=== PATIENT | male | born 2000 | race Caucasian/White ===

== ENCOUNTER 2023-09-18 19:27 | Emergency (ER) | payer MEDICAID ==
[~2023-09-18] VITALS: Ht 170.2 cm; Wt 69.0 kg
[2023-09-18] MEDS ORDERED: PREDNISONE 20MG TABLET PO STA (19:58)
[2023-09-18] MEDS ORDERED: ALBUTEROL (0.083%) 2.5MG/3ML NEB ONE (21:51)
[2023-09-18] MEDS ORDERED: IPRATROPIUM BROMIDE (0.02%) 0.5MG/2.5ML NEB ONE (21:51)
[2023-09-18] MEDS: IPRATROPIUM BROMIDE (0.02%) 0.5MG/2.5ML NEB HHN STA (21:54)
[2023-09-18] MEDS: ALBUTEROL (0.083%) 2.5MG/3ML NEB HHN STA (21:54)
[2023-09-18 21:56] VITALS: PULSE 64; RESP 22; O2SAT 99
[2023-09-18 22:00] VITALS: BP 120/69; PULSE 79; RESP 18; TEMP 98.2
[2023-09-18] MEDS ORDERED: ALBU6.7H15 INH (22:14)
[2023-09-18] MEDS ORDERED: P20 MT (22:14)
== END 2023-09-18 22:33 | disposition home or self-care (01) ==
LOC: ER 19:27
DX: R06.02 Shortness of breath (principal); J45.909 Unspecified asthma, uncomplicated
CPT/HCPCS: 94640; 99283; J7512; Z7610 ×3